=== PATIENT | male | born 1955 | race Caucasian/White ===

== ENCOUNTER 2018-12-07 16:50 | Inpatient (IN) | payer MEDICARE ==
[~2018-12-07] VITALS: Ht 175.3 cm; Wt 91.4 kg
--- NOTE | ~2018-12-07 | HEMODYNAMI ---
PATIENT:FERNANDO CATES MEDICAL RECORD: [id number] : 59 [facility] ADMISSION DATE: 12/08/18 Generatedon:12/09/201814:07 Patient name: FERNANDO CATES Patient #: [id number] SSN: [id number] : 1955 Date of study: 12/09/2018 Page: Of Hemodynamic Procedure Report Patient Data Patient Demographics Procedure consent was obtained First Name: FERNANDO Gender: Male Last Name: DARRYN : 1955 [facility] Initial: D Age: 63 year(s) Patient #: [id number] Race: SSN: [id number] Additional ID: [id number] Contact details [address]: [address] [place] [address] State: [place] City: [place] Zip code: [address] Past Medical History Allergies: No known allergies Admission Admission Data Admission Date: 12/08/2018 Admission Time: 18:09 Arrival Date: 12/09/2018 Arrival Time: 0:00 Admit Source: Emergency Insurance Payor: Medicare department [facility] #: [id number] Room #: D.2115 Height (in.): 68.9 BSA: 2.07 (m2) Height (cm.): 175 BMI: 29.71 (kg/m2) Weight (lbs.): 200.62 Weight (kg.): 91 Lab Results Lab Result Date: 12/09/2018 Lab Result Time: 0:00 Biochemistry Name Units Result Min Max BUN mg/dl 14 --(--*-)-- 7 18 Creatinine mg/dl 0.8 --(-*--)-- 0.6 1.3 eGFR ml/min 90 --(*---)-- 90 120 NONAFRICAN CBC Name Units Result Min Max Hemoglobin g/dl 12.5 *-(----)-- 13.5 17.5 Procedure Procedure Types Cath Procedure Diagnostic Procedure LHC LHC w/Coronaries Procedure Description Procedure Date Procedure Date: 12/09/2018 Procedure Start Time: 13:57 Procedure End Time: 14:05 Procedure Staff Name Function Richard Mcrae MD Performing Physician Lydia Albert RT Monitor Sarah oMya RT Monitor Aan Russell RT Scrub Irma Lemus RN Nurse Procedure Data Cath Procedure Fluoroscopy Diagnostic fluoroscopy Total fluoroscopy Time: 1 time: 1 min min Diagnostic fluoroscopy Total fluoroscopy dose: 241 dose: 241 mGy mGy Contrast Material Contrast Material Type Amount (ml) Isovue 300 48 Entry Location Entry Primary Successful Side Size Upsize Upsize Entry Closure Succes sful Closure Location (Fr) 1 (Fr) 2 (Fr) Remarks Device Remarks Femoral Right 5 Fr Exoseal artery Estimated blood loss: 5 ml Diagnostic catheters Device Type Used For End Catheter Placement MULTIPACK Pigtail 5 Fr LV Angiography catheter MULTIPACK JL 4.0 5Fr Left Coronary catheter Angiography MULTIPACK 3DRC 5Fr Right Coronary catheter Angiography Procedure Complications No complications Procedure Medications Medication Administration Route Dosage Versed I.V. 2 mg Fentanyl I.V. 50 mcg 0.9% NaCl I.V. 100 ml/hr Oxygen etCO2 Nasal cannula 2 l/min Lidocaine 2% added to field 20 Heparin Flush Bag added to field 2 bags (1000units/500ml NS) Versed I.V. 2 mg Fentanyl I.V. 50 mcg Versed I.V. 1 mg Fentanyl I.V. 50 mcg Hemodynamics Rest BSA: 2.07 (m2) HGB: 12.5 (g/dl) O2 Consumption: Estimated: 243.18 (ml/min) O2 Co nsumption indexed: Estimated:117.48 (ml/min/m) Heart Rate: 70 (bpm) Snapshots Pre Cath Intra NCS Post Cath Vital Signs Time Heart Resp SPO2 etCO2 NIBP (mmHg) Rhythm Pain Sedation Rate (ipm) (%) (mmHg) Status Level (bpm) 13:08:06 70 10 97 0 133/83(103) NSR 0 (11) 10(A) , No pain 13:12:20 65 11 100 36 131/79(101) NSR 0 (11) 10(A) , No pain 13:16:36 76 15 100 39 112/67(84) NSR 0 (11) 10(A) , No pain 13:20:46 68 13 100 41.3 115/74(86) NSR 0 (11) 10(A) , No pain 13:24:54 73 15 99 21 115/77(90) NSR 0 (11) 10(A) , No pain 13:29:08 69 13 99 34.5 116/68(87) NSR 0 (11) 10(A) , No pain 13:33:17 68 13 99 37.5 114/72(88) NSR 0 (11) 10(A) , No pain 13:37:27 69 14 98 11.2 124/75(99) NSR 0 (11) 10(A) , No pain 13:41:41 66 13 99 32.2 124/73(92) NSR 0 (11) 10(A) , No pain 13:45:51 66 15 98 30 115/75(88) NSR 0 (11) 10(A) , No pain 13:50:03 65 18 98 28.5 116/72(90) NSR 0 (11) 10(A) , No pain 13:54:15 76 13 98 19 103/73(85) NSR 0 (11) 10(A) , No pain 13:58:23 63 13 98 32.2 112/70(90) NSR 0 (11) 10(A) , No pain 14:02:35 71 13 97 32.2 112/66(93) NSR 0 (11) 10(A) , No pain Medications Time Medication Route Dose Verified Delivered Reason Notes Eff ectiveness by by 13:51:07 Versed I.V. 2 mg Richard Irma for Clementina Lemus sedation RN 13:51:16 Fentanyl I.V. 50 Richard Irma for mcg Clementina Lemus sedation RN 13:51:33 0.9% NaCl I.V. 100 Richard Irma used for ml/hr Clementina Lemus sales consulting director 13:51:40 Oxygen etCO2 2 Richard Irma used for Nasal l/min Clementina Lemus procedure cannula RN 13:51:45 Lidocaine 2% added 20ml Richard Ramos for local to vial Clementina Mcrae MD anesthetic field 13:51:49 Heparin Flush added 2 Richard Richard used for Bag to bags Clementina Mcrae MD procedure (1000units/500ml field NS) 13:56:36 Versed I.V. 2 mg Richard Mcrae MD sedation 13:56:42 Fentanyl I.V. 50 Richard Mcrae MD sedation 14:01:18 Versed I.V. 1 mg Richard Mcrae MD sedation 14:01:23 Fentanyl I.V. 50 Richard Ramos for navid Mcrae MD sedation Procedure Log Time Note 12:47:34 Procedure Status Urgent Heart Cath (IP). 12:47:36 Lydia Bety RT(R) sent for patient. Start room use. 12:47:38 Time tracking: Regular hours (M-F 7:00 - 5:00) 12:47:41 Plan of Care:Hemodynamics will remain stable., Cardiac rhythm will remain stable., Comfort level will be maintained., Respiratory function will remain adequate., Patient/ family verbilizes understanding of procedure., Procedure tolerated without complication., Recovers from procedure without complications.. 12:47:44 Signed procedure consent form obtained from patient. 12:57:13 Arrival Date: 12/09/2018 12:00:00 AM 12:57:14 Admit Source: Emergency department 12:57:37 Insurance Payor : Medicare 12:57:42 Patient Height : 68.9 inches 12:57:48 Patient Weight : 200.62 lbs 12:58:26 Lab Result : eGFR NONAFRICAN 90 ml/min 12:58:26 Lab Result : Hemoglobin 12.5 g/dl 12:58:26 Lab Result : BUN 14 mg/dl 12:58:26 Lab Result : Creatinine 0.8 mg/dl 13:02:13 Patient received from Med II to CCL 1 Alert and oriented. Tansferred to table in Supine position. 13:02:15 Warm blankets applied, and kaycee hugger turned on for patient comfort. 13:02:16 Correct patient and procedure confirmed by team. 13:02:17 ECG and BP/O2 sat monitors applied to patient. 13:06:39 H&P Date Dictated: 12/09/2018 Within 30 days and on chart.. 13:07:00 Vital chart was started 13:07:03 Baseline sample Acquired. 13:07:09 Rhythm: sinus rhythm 13:07:14 Full Disclosure recording started 13:07:15 - 13:07:17 Pre-procedure instructions explained to patient. 13:07:21 Pre-op teaching completed and patient verbalized understanding. 13:07:26 Family in patients room. 13:07:35 Patient allergic to No known allergies 13:07:41 Is the patient allergic to Iodine/contrast media? No. 13:07:44 Was the patient premedicated? No 13:07:46 Is patient on blood thinner?No 13:07:52 Patient diabetic? No. 13:08:27 ----Pre-sedation anethsthesia assessment.---- 13:08:32 Previous problem with sedation/anesthesia? No ? 13:08:34 Snore? Yes 13:08:36 Sleep apnea? No 13:08:38 Deviated septum? No 13:08:40 Opens mouth fully? Yes 13:08:41 Sticks out tongue? Yes 13:08:48 Airway obstruction? Yes COPD 13:09:01 Dentures? No ? 13:09:05 Pre procedure: right dorsailis pedis pulse 2+ Normal; easily identifiable; not easily obliterated 13:09:09 Pre procedure: left dorsailis pedis pulse 2+ Normal; easily identifiable; not easily obliterated 13:09:21 Patient pain scale 0/10 ?. 13:09:29 IV patent on arrival in left forearm with 0.9% NaCl at [facility]. 13:09:36 Lab results completed and on chart. 13:09:41 Risk of Mortality: 0.1 13:09:46 Risk of blood transfusion: 1.0 13:09:51 Risk of CHARISSA: 2.4 13:09:59 Right groin area was prepped with chlora-prep and draped in sterile fashion 13:10:03 Alarms reviewed by R. N. 13:10:05 Sharps counted by scrub and verified by R.N. 13:13:34 Use device set Femoral Dx 13:13:38 ACIST Syringe (25912) opened to sterile field. 13:13:38 Bag Decanter (2002S) opened to sterile field. 13:13:40 Medline Cath Pack ([id number]) opened to sterile field. 13:13:43 ACIST Hand Control (17306) opened to sterile field. 13:13:44 ACIST Manifold (22680) opened to sterile field. 13:13:46 DIAGNOSTIC Multipack 5Fr catheter set (XX9595) opened to sterile field. 13:13:47 Tegaderm 4 x 4 (1626W) opened to sterile field. 13:13:54 SHEATH 5FR Greenwich (ZTD850) opened to sterile field. 13:13:56 EMERALD Guide Wire (618-820) opened to sterile field. 13:15:56 ACCPatient has been prescribed/administered the following anti-anginal medication within the last 2 weeks: None 13:20:44 Zero performed for pressure channel P1 13:43:22 1) 90+ Normal kidney functon but urine findings or structural abnormalities or genetic trait point to kidney disease. 13:43:31 Maximum allowable contrast dose (3.7 X eGFR X 0.75)250 ml. 13:47:27 ACC Patient presents with Unstable Angina CCS Anginal Class 3--Marked limitation of physical activity, angina occurs with ordinary activity.. 13:49:09 --------ALL STOP TIME OUT------ 13:49:10 Final Timeout: patient, procedure, and site verified with staff and physician. All members of the team are in agreement. 13:49:12 Right groin site verified by team. 13:49:19 Fire Safety Assessment: A--An alcohol-based skin anteseptic being used preoperatively., C--Open oxygen or nitrous oxide is being used., D--An ESU, laser, or fiber-optic light is being used. 13:49:24 Physical assessment completed. ASA score P 2 - A patient with mild systemic disease as per Richard Mcrae MD. 13:49:29 Sedation plan: IV Moderate Sedation Medication:Versed, Fentanyl 13:51:07 Versed 2 mg I.V. was administered by Irma Lemus RN; for sedation; Verbal order read back and verified. 13:51:16 Fentanyl 50 mcg I.V. was administered by Irma Lemus RN; for sedation ; Verbal order read back and verified. 13:51:33 0.9% NaCl 100 ml/hr I.V. was administered by Irma Lemus RN; used for procedure; Verbal order read back and verified. 13:51:40 Oxygen 2 l/min etCO2 Nasal cannula was administered by Irma Lemus RN ; used for procedure; Verbal order read back and verified. 13:51:45 Lidocaine 2% 20ml vial added to field was administered by Richard Mcrae MD; for local anesthetic; Verbal order read back and verified. 13:51:49 Heparin Flush Bag (1000units/500ml NS) 2 bags added to field was administered by Richard Mcrae MD; used for procedure; Verbal order read back and verified. 13:56:36 Versed 2 mg I.V. was administered by Richard Mcrae MD; for sedation; Verbal order read back and verified. 13:56:42 Fentanyl 50 mcg I.V. was administered by Richard Mcrae MD; for sedation ; Verbal order read back and verified. 13:57:00 Procedure started. 13:57:06 Local anesthetic to right femoral artery with Lidocaine 2% by Richard Mcrae MD.INITIAL ACCESS ONLY 13:58:51 A 5 Fr sheath was inserted into the Right Femoral artery 13:59:28 A MULTIPACK Pigtail 5 Fr catheter was advanced over the wire and used for LV Angiography. 13:59:31 LV gram done using PANDEY 13:59:38 Injector settings: Ml/sec: 10, Volume: 20, 13:59:47 EF : 55 % 13:59:50 Catheter removed. 13:59:58 A MULTIPACK JL 4.0 5Fr catheter was advanced over the wire and used for Left Coronary Angiography. 14:00:02 LCA angiography performed. 14:00:44 Injector settings: Ml/sec: 3, Volume: 6, 14:01:07 Catheter removed. 14:01:14 A MULTIPACK 3DRC 5Fr catheter was advanced over the wire and used for Right Coronary Angiography. 14:01:18 Versed 1 mg I.V. was administered by Richard Mcrae MD; for sedation; Verbal order read back and verified. 14:01:23 Fentanyl 50 mcg I.V. was administered by Richard Mcrae MD; for sedation ; Verbal order read back and verified. 14:01:36 RCA angiography performed. 14:01:45 Injector settings: Ml/sec: 3, Volume: 6, 14:01:55 EXOSEAL 5Fr (EX500) opened to sterile field. 14:02:04 Catheter removed. 14:02:24 Sheath removed intact; hemostasis achieved with Exoseal to the Right Femoral artery. 14:02:31 Procedure ended.(Physican Out) 14:02:45 Fluoroscopy time 01.00 minutes. 14:02:55 Fluoroscopy dose: 241 mGy 14:02:55 Flurop Dose total: 241 14:03:09 Dose Area Product 69861 mGy/cm. 14:03:15 Contrast amount:Isovue 300 48ml. 14:03:19 Maximum allowable dose exceeded? No. 14:03:21 Sharps counted by scrub and verified by R.N. 14:03:29 Insertion/operative site no bleeding no hematoma. 14:03:34 Post-op/insertion site Right Femoral artery dressed using a 4 x 4 and Tegaderm. 14:03:40 Post right femoral artery:stable 14:03:43 Post Procedure Pulses reassessed and unchanged 14:03:49 Post-procedure physical assessment completed. ASA score P 2 - A patient with mild systemic disease as per Richard Mcrae MD. 14:03:53 Post procedure rhythm: unchanged. 14:03:58 Estimated blood loss: 5 ml 14:04:00 Post procedure instruction explained to patient.Patient verbalizes understanding. 14:04:01 Patient needs reinforcement of post procedure teaching. 14:04:16 Procedure and supply charges have been captured, reviewed, submitted an d are correct. 14:05:03 Procedure Complication : No complications 14:05:07 Vital chart was stopped 14:05:11 [facility] Findings: mild to moderate CAD (<70%) 14:05:16 Operative report dictated upon procedure completion. 14:05:17 See physician's report for complete and final results. 14:05:20 Report given to Med II. 14:05:25 Patient transfered to Med II with Bed. 14:05:28 Procedure ended. 14:05:28 Full Disclosure recording stopped 14:05:37 End room use (Document Last) Device Usage Item Name Manufacture Quantity Catalog Hospital Part Current Minimal L ot# / Number Charge Number Stock Stock Serial# Code ACIST Acist 1 35776 078198 787955 278338 20 [employer] (46434) Systems Inc Bag Microtek 1 2001S 254306 15458 722228 5 Decanter Medical Inc. (2001S) Medline Medline 1 [id number] 033670 42116 521015 5 Cath Pack ([id number]) ACIST Hand Acist 1 94146 909805 687934 424921 5 Control Medical (12790) Systems Inc ACIST Acist 1 37558 571835 421874 963672 5 Manifold Medical (78695) Systems Inc DIAGNOSTIC Cardinal 1 [id number] 457910 69304 511987 30 Multipack WhipCar 5Fr catheter set (IL2262) Tegaderm 4 3M 1 1626W 312216 461968 230723 5 x 4 (1626W) SHEATH 5FR Terumo 1 BUE560 715704 713422 341383 5 Greenwich (KMM100) EMERALD Cardinal 1 502455 362389 152416 833853 5 Guide Wire [facility] (502-050) MULTIPACK Cardinal 1 808870 5 Pigtail 5 Health Fr catheter MULTIPACK Cardinal 1 518020 5 JL 4.0 5Fr Health catheter MULTIPACK Cardinal 1 953903 5 3DRC 5Fr Health catheter EXOSEAL 5Fr Cardinal 1 EX500 817550 195749 468825 10 (EX500) Health Signature Audit [place] Stage Time Signature Unsigned Intra-Procedure 12/09/2018 Sarah 2:06:05 PM Nita RT(R) (CV) Intra-Procedure 12/09/2018 Irma Lemus 2:06:33 PM RN Intra-Procedure 12/09/2018 Richard Mcrae 2:07:16 PM [place] [id number] [place] [address]
[2018-12-07] MEDS ORDERED: ASPIRIN81 MG PO (17:05)
[2018-12-07] MEDS ORDERED: NITROQUICK0.4 MG SL (17:05)
[2018-12-07 17:18] LABS: BASOPHILS 0.6 % (0-2); EOSINOPHILS 4.2 % (0-7); HEMATOCRIT 37.2 % (42.0-54.0); HEMOGLOBIN 12.9 g/dL (13.5-17.5); IMMATURE GRANULOCYTES 0.3 % (0-5); LYMPHOCYTES 34.8 % (15-50); MCH 32.5 pg (26.0-34.0); MCHC 34.7 g/dL (31.0-37.0); MCV 93.7 fL (80.0-100.0); MONOCYTES 9.4 % (2-11); NEUTROPHILS 50.7 % (40-80); PLATELET COUNT 291 10x3/uL (130-400); RBC 3.97 10x6/uL (4.20-6.10); WBC 6.4 10x3/uL (4.8-10.8)
[2018-12-07 17:28] LABS: APTT 24.4 SECONDS (22.8-39.4); INR 0.94 (0.85-1.17); PROTIME 12.1 SECONDS (11.6-15.0)
[2018-12-07 17:41] LABS: ALBUMIN 3.7 g/dL (3.4-5.0); ALKALINE PHOSPHATASE 77 U/L (46-116); ALT (SGPT) 35 U/L (10-68); BILIRUBIN - TOTAL 0.28 mg/dL (0.2-1.3); CALC OSMOLALITY 281 mosm/kg (275-300); CALCIUM 9.3 mg/dL (8.5-10.1); CARBON DIOXIDE 28.4 mmol/L (21.0-32.0); CHLORIDE - SERUM 104 mmol/L (98-107); CREATININE - SERUM 0.7 mg/dL (0.6-1.3); GLUCOSE 91 mg/dL (74-106); POTASSIUM - SERUM 4.2 mmol/L (3.5-5.1); PROTEIN - SERUM 6.7 g/dL (6.4-8.2); SODIUM 141 mmol/L (136-145); UREA NITROGEN 14 mg/dL (7-18); eGFR NON AFRICAN AMERICAN > 90 mL/min (90-120)
[2018-12-07 17:45] VITALS: BP 126/80
[2018-12-07 17:57] LABS: CKMB 0.8 U/L (0.0-3.6); CREATINE KINASE 85 UL (21-232); MAGNESIUM - SERUM 1.8 mg/dL (1.8-2.4); TROPONIN-I < 0.017 ng/mL (0.000-0.060)
[2018-12-07 18:42] VITALS: BP 133/85
--- NOTE | 2018-12-07 18:56 | NUR ---
BS REPORT TO KAREN GARNICA
--- NOTE | 2018-12-07 19:40 | NUR ---
PT IN BED TALKING WITH FAMILY AT BEDSIDE, PT HAS NO NEEDS AT THIS TIME.
[2018-12-07 21:59] VITALS: BP 142/72; BMI 29.7
[2018-12-08] VITALS: BP 113/67
[2018-12-08 00:03] LABS: CKMB 0.7 U/L (0.0-3.6); CREATINE KINASE 107 UL (21-232); TROPONIN-I < 0.017 ng/mL (0.000-0.060)
[2018-12-08 04:00] VITALS: BP 114/65
[2018-12-08 06:08] LABS: BASOPHILS 0.5 % (0-2); EOSINOPHILS 5.5 % (0-7); HEMATOCRIT 35.9 % (42.0-54.0); HEMOGLOBIN 12.5 g/dL (13.5-17.5); IMMATURE GRANULOCYTES 0.2 % (0-5); LYMPHOCYTES 36.3 % (15-50); MCH 33.2 pg (26.0-34.0); MCHC 34.8 g/dL (31.0-37.0); MCV 95.5 fL (80.0-100.0); MEAN PLATELET VOLUME 9.2 fL (7.4-10.4); MONOCYTES 9.4 % (2-11); NEUTROPHILS 48.1 % (40-80); PLATELET COUNT 274 10x3/uL (130-400); RBC 3.76 10x6/uL (4.20-6.10); RDW 12.4 % (11.5-14.5)
[2018-12-08 06:38] LABS: ALBUMIN 3.3 g/dL (3.4-5.0); ALKALINE PHOSPHATASE 55 U/L (46-116); ALT (SGPT) 33 U/L (10-68); BILIRUBIN - TOTAL 0.43 mg/dL (0.2-1.3); CALC OSMOLALITY 278 mosm/kg (275-300); CALCIUM 8.5 mg/dL (8.5-10.1); CARBON DIOXIDE 30.2 mmol/L (21.0-32.0); CHLORIDE - SERUM 104 mmol/L (98-107); CKMB 0.7 U/L (0.0-3.6); CREATINE KINASE 60 UL (21-232); CREATININE - SERUM 0.8 mg/dL (0.6-1.3); GLUCOSE 88 mg/dL (74-106); POTASSIUM - SERUM 3.8 mmol/L (3.5-5.1); PROTEIN - SERUM 6.3 g/dL (6.4-8.2); SODIUM 140 mmol/L (136-145); TROPONIN-I < 0.017 ng/mL (0.000-0.060); UREA NITROGEN 14 mg/dL (7-18); eGFR NON AFRICAN AMERICAN > 90 mL/min (90-120)
[2018-12-08 09:05] VITALS: Ht 175.3 cm; Wt 91.4 kg
[2018-12-08 09:06] VITALS: BP 107/62
--- NOTE | 2018-12-08 11:03 | NUR ---
TELEMETRY SR. LEAVING FOR STRESS TEST BY W/C.
--- NOTE | 2018-12-08 13:34 | NUR ---
GONE FOR SECOND HALF STRESS TEST. WILL MONITOR.
[2018-12-08 16:29] VITALS: BP 133/68
--- NOTE | 2018-12-08 17:43 | NUR ---
CONSENTS SIGNED FOR [facility]. MEDICATED FOR C/P. WILL CONT. PLAN OF CARE.
[2018-12-08 20:00] VITALS: BP 134/70
[2018-12-09] VITALS: BP 116/69
[2018-12-09 04:00] VITALS: BP 101/67
[2018-12-09 08:30] VITALS: BP 119/71
[2018-12-09 12:30] VITALS: BP 122/75
--- NOTE | 2018-12-09 12:58 | NUR ---
HR DROPPED TO 30, THEN BACK UP TO 60. SEWER LINE PHOTO INSPECTOR NOTIFIED TO INFORM DR. MCGRATH. LEAVING FOR SEWER LINE PHOTO INSPECTOR BY BED. WILL MONITOR.
--- NOTE | 2018-12-09 14:04 | HP ---
PATIENT: FERNANDO CATES MEDICAL RECORD: [id number] ACCOUNT: [id number] LOCATION:[address] : [birth year] ADMISSION DATE: 12/08/18 PCP: No PCP HISTORY AND PHYSICAL EXAMINATION DIAGNOSES: 1. Unstable angina. 2. Coronary artery disease. 3. Previous myocardial infarction. 4. Previous percutaneous transluminal coronary angioplasty stent. 5. Chronic obstructive pulmonary disease. 6. Smoking history. HISTORY OF PRESENT ILLNESS: Mr. Cates presents with increasing episodes of chest pain times 2 days. He has been short of breath for 1 week. His chest pain is a classic anginal pain with a tightness, heavy pressure sensation on the anterior chest. No real radiation. He was initially getting it with exertion yesterday; however, it progressed to rest pain. Last night, he presented to the Emergency Room. His EKG is with no changes. Troponin is negative. He is pain free at this time. It is like that of his previous angina. Last cardiac intervention was approximately 1999 as he remembers. He has been told in the past that he has a weak heart as well. PHYSICAL EXAMINATION: CONSTITUTIONAL/GENERAL APPEARANCE: Well nourished, well developed, appears stated age. EYES: Lids and conjunctivae noninjected. No discharge. No pallor. ENT: Lips within normal limit. No cyanosis. No pallor. NECK: Carotid arteries, bilateral normal upstroke. No bruits. No thrills. No jugular venous pressure or distention. CERVICAL LYMPH NODES: Nontender. Nonenlarged. THYROID: Not enlarged. No nodules. CARDIOVASCULAR: Precordial exam, nondisplaced. No heaves or pericardial thrills. Rate and rhythm, regular. Heart sounds, normal S1, normal S2. No S3, no gallop, no rub. Systolic murmur, not heard. Diastolic murmur, not heard. RESPIRATORY: Respiratory effort, unlabored. Normal curvature. No thoracic deformity. No chest wall tenderness. Percussion, resonant. Auscultation, clear. No wheezes, no rales, no rhonchi. ABDOMEN: Soft, nondistended, nontender. No abdominal pain, no vomiting and normal appetite. MUSCULOSKELETAL: No joint tenderness, normal gait, normal tone. SKIN: Warm and dry. OVERALL IMPRESSION: Unstable angina, normal EKG, normal troponin. At this time, we will risk stratify with stress testing and Cardiolite imaging. We will also obtain an echo for evaluation of the cardiomyopathy. TRANSINT:[id number] Voice Confirmation ID: [id number] DOCUMENT ID: [id number] HISTORY AND PHYSICAL [id number] FERNANDO CATES JEFFREY MD at 1404 CC: [id number] DICTATION DATE: 12/08/18906 UNIVERSITY TUTOR: 12/08/18 0944 ADM IN [place] [id number] [place] [id number]
--- NOTE | 2018-12-09 14:26 | NUR ---
BACK FROM C ARCHITECT. VS WNL. RIGHT GROIN STABLE WITHOUT BLEEDING OR HEMATOMA NOTED. WILL MONOOR.
--- NOTE | 2018-12-09 15:57 | NUR ---
BED REST UP. GROIN STABLE.
--- NOTE | 2018-12-09 16:14 | NUR ---
NO FURTHER EPISODES OF SB. GROIN STABLE. IV AND TELEMETRY DCD. DC PLANS GIVEN. UNDERSTANDING VOICED. UPSET WITH DR. MCGRATH FOR NOT EXPLAINING THINGS BETTER. RAMILA NOTIFIED EARLIER IN SENIOR CAREGIVER. STATES C/P IS NOT CARDIAC AND NO BLOCKAGES. TRIED TO EXPLAIN THIS TO PT AND FAMILY, BUT STILL ANGRY WITH PHYSICIAN AT THIS TIME. LEAVING HOSP WITH FAMILY.
--- NOTE | 2018-12-09 17:50 | MORECARE ---
CASE MANAGEMENT DISCHARGE SUMMARY PATIENT: FERNANDO CATES UNIT: [id number] ADM DATE: 12/08/18 AGE: 63 : [birth year] SEX: M ROOM/BED: D.5795 AUTHOR: OUMOU JON PHYSICIAN: REFERRING PHYSICIAN: DEEPAK MCGRATH MD DATE OF SERVICE: 12/09/18 Discharge Plan Patient Name: FERNANDO CATES Facility: [facility]:[place] : 1955 Planned Disposition: Home Anticipated Discharge Date: 12/09/18 Discharge Date: 12/09/2018 Expected LOS: 1 Initial Reviewer: [email or web address] Initial Review Date: 12/09/2018 Generated: 12/09/18 6:50 pm Comments DCP- Discharge Planning Updated by [email or web address]: Suman Graham on 12/09/18 4:[address] Patient Name: FERNANDO CATES Admission Status: ER Accout number: [id number] Admission Date: 12-08-2018 : 1955 Admission Diagnosis: Attending: SADI MCGRATH Current LOS: 1 Anticipated DC Date: 12-09-2018 Planned Disposition: Home Primary Insurance: MEDICARE A & B Discharge Planning Comments: CM ATTEMPTED TO MEET WITH PT FOR INITIAL ASSESSMENT OF DISCHARGE NEEDS. PT WAS NOT IN ROOM AT APPROXIMATELY 1620 HOURS. PT HAD DISCHARGED HOME PRIOR TO CM BEING ABLE TO ASSESS FOR DISCHARGE NEEDS. Secretary Of State: Suman Graham Coverage Notice Reviewer: [email or web address] Antonia Espinosa Notice Issued Date-Time: 12/07/2018 18:45 Notice Type: Medicare Outpatient Observation Notice Notice Delivered To: Patient Relationship to Patient: Self Quantitative Research Analyst Name: Delivery Method: - Praveena Days: Prior Verbal Notification: Recipient Understood Notice: Yes Recipient Signature: Yes Med Rec Note Co-signed by Attending: Coverage Notice Comment: VILLA given to and signed by patient. Patient Name: FERNANDO CATES Page [id number] at 1750 All edits/amendments must be made on the electronic document DICTATION DATE: 12/09/181749 HAM SMOKER: SILVIA 12/09/18 175 RPT#: [id number] DC DATE:12/09/18 STATUS: DIS IN [facility] [address] [place] [address] END OF REPORT
--- NOTE | 2018-12-10 13:29 | ST ---
PATIENT:FERNANDO CATES MEDICAL RECORD: [id number] SEX: M [facility] ORDER #: ADMISSION DATE: 12/08/18 AGE OF PATIENT: 63 REFERRING PHYSICIAN: INTERPRETING PHYSICIAN: DEEPAK MCGRATH MD DATE OF SERVICE: 12/08/2018 PROCEDURE: Nuclear stress test. INDICATION: Unstable angina, coronary artery disease. He was exercised on standard Lexiscan protocol with 31 mCi of sestamibi injected at peak stress, 11 mCi used previously for rest images. FINDINGS: Gated SPECT reveals preserved ejection fraction at 65% with good wall motioning and thickening and brightening throughout all segments. SPECT imaging Cardiolite was used as myocardial perfusion agent. There are reversible changes inferiorly. This includes the basal, mid, apical, inferior segments. The degree of reversibility is mild to moderate. The amount of myocardium involved is moderate. OVERALL IMPRESSION: This is an abnormal nuclear stress test. Reversible ischemia inferiorly suggestive of hemodynamically significant coronary artery disease. TRANSINT:[id number] Voice Confirmation ID: [id number] DOCUMENT ID: [id number] DEEPAK MCGRATH MD at 1329 CC: [id number] DICTATION DATE: 12/08/18 1609 CAREER DEVELOPMENT COUNSELOR: 12/09/18 0811 DIS IN 12/09/18 [place] [address] [place] [address]
--- NOTE | 2018-12-10 13:29 | OP ---
PATIENT NAME: FERNANDO CATES MEDICAL RECORD: [id number] :59 LOCATION:D.M2 D.2115 ADMISSION DATE:12/08/18 SURGEON: DEEPAK MCGRATH MD DATE OF OPERATION: 12/09/2018 DATE OF SERVICE: 12/09/2018 PROCEDURES: 1. Left heart catheterization. 2. Selective coronary angiography. 3. Left ventriculogram. INDICATION: Chest pain compatible with angina and abnormal nuclear stress test. PROCEDURE IN DETAIL: After informed consent was obtained and after a detailed description of the risks, benefits as well as alternative therapies, the patient elected to proceed with angiogram and heart catheterization. The right femoral area was prepped and draped in normal sterile fashion. The right femoral artery was cannulated via modified Seldinger technique with placement of 5-Sinhala sheath. All catheters exchanged through this sheath. FINDINGS: Left ventriculogram was performed in standard 30-degree PANDEY view, reveals good cardiac wall motion, ejection fraction estimated 60%. SELECTIVE CORONARY ANGIOGRAPHY: Left main, left anterior descending, left circumflex, right coronary artery are all smooth-walled vessels with no angiographic evidence of coronary artery disease. OVERALL IMPRESSION: 1. No angiographic evidence of coronary artery disease. 2. Normal left heart pressures. 3. Normal left ventricular systolic function. Chest pain is noncardiac in etiology. No further cardiac workup needs to be ascertained. TRANSINT:[id number] Voice Confirmation ID: [id number] DOCUMENT ID: [id number] DEEPAK MCGRATH MD at 1329 CC: [id number] DICTATION DATE: 12/09/18 1406 CUSTOMER SERVICE CONSULTANT: 12/09/18 1415 DIS IN 12/09/18 [place] [id number] [place] [address]
--- NOTE | 2018-12-10 13:29 | DS ---
PATIENT:FERNANDO CATES :59 MEDICAL RECORD: [id number] DISCHARGE SUMMARY ADMISSION DATE: 12/08/18 DISCHARGE DATE: 12/09/18 DATE OF DISCHARGE: 12/09/2018 DIAGNOSES: 1. Chest pain. 2. Normal cardiac catheterization. HOSPITAL COURSE: Mr. Cates presented with chest pain. He gave a history of having multiple stents in the past; however, cardiac catheterization revealed no blockages of his heart arteries. No previously placed stents. Not sure of the etiology of his chest discomfort. No other cardiac workup or treatment is necessary. TRANSINT:[id number] Voice Confirmation ID: [id number] DOCUMENT ID: [id number] DEEPAK MCGRATH MD at 1329 CC: [id number] DICTATION DATE: 12/09/18 1407 [employer]IC SYSTEMS SAFETY ENGINEER: 12/10/18 0406 DIS IN 12/09/18 [id number] [place] [address]
--- NOTE | 2018-12-10 13:29 | EC ---
PATIENT:FERNANDO CATES DATE OF SERVICE: 12/08/18 SEX: M MEDICAL RECORD: [id number] DATE OF : 59 LOCATION:D. D211 AGE OF PATIENT: 63 ADMISSION DATE: 12/08/18 REFERRING PHYSICIAN: INTERPRETING PHYSICIAN: DEEPAK MCRAE MD ECHOCARDIOGRAM REPORT ECHO CHARGES 4 ECHO COMPLETE Date: 12/08/18 CLINICAL DIAGNOSIS: DILATED CARDIOMYOPATHY HX CAD/STENT ECHOCARDIOGRAPHIC MEASUREMENTS (adult normal given) AC root (d.<3.7cm) 3.5 cm LV Septum d (<1.2 cm> 1.3 cm Valve Excursion 1.7 cm LV Septum (systole) 1.5 cm Left Atria (s.<4.0cm> 3.4 cm LVPW d(<1.2cm) 1.4 cm RV (d.<2.3cm) 4.1 cm LVPW (sytole) 1.6 cm LV diastole(<5.6CM) 4.8 cm MV E-F(>70mm/sec) cm LV systole 3.5 cm LVOT Diameter 2.1 cm MV exc.(>10mm) 1.8 cm Est.ejection fraction (50-75%) % DOPPLER: LVIT cm/sec A 76.0 cm/sec E 86.0 cm/sec LA cm/sec RVSP 20 mmHg LVOT 101 cm/sec AOP1/2T m/s Asc. Ao 122 cm/sec RVOT 81 cm/sec RA cm/sec PA 152 cm/sec AV Gradient Peak 5.99 mmHg AV Mean 3.55 mmHg AV Area 2.6 cm MV Gradient Peak 4.23 mmHg MV Mean 2.11 mmHg MV Area cm COMMENTS: Metal Or Wood Blocker: Cara FRIEDMAN Exec. Creative Director: 1 Dr. Mcrae TAPE# PACS Pericardial Effusion N DATE OF SERVICE: 12/08/2018 FINDINGS: 1. Left ventricular chamber size is within normal limits. Left ventricular systolic function equals 55% to 60%. 2. Left atrium is within normal limits at 3.4 cm. Right atrium and right ventricular chamber sizes are mildly dilated. 3. Valvular structures have normal structure and motion. 4. Doppler interrogation only reveals trace tricuspid regurgitation. No other valvular insufficiency or stenosis. Pulmonary systolic pressure is estimated at ECHOCARDIOGRAM REPORT [id number] FERNANDO CATES 20 mmHg. 5. No evidence of pericardial effusion or left ventricular thrombus. TRANSINT:[id number] Voice Confirmation ID: [id number] DOCUMENT ID: [id number] DEEPAK MCRAE MD at 1329 CC: [id number] DICTATION DATE: 12/08/18 [address] RELATIONS ADVISER: 12/09/18 0220 DIS IN 12/09/18 [facility] [address] [id number]
== END 2018-12-09 16:18 | disposition home or self-care (01) | DRG 287 ==
LOC: D.ER 16:50 → D.M2 18:42 → OBSVTIME 18:54 → D.M2 12-08 18:09
PROVIDERS: Family Medicine; ADMIT Internal Medicine Interventional Cardiology; ATTEND Internal Medicine Interventional Cardiology
PROC: B2151ZZ Fluoroscopy of Left Heart using Low Osmolar Contrast (ICD-10-PCS; 2018-12-09)
PROC: 4A023N7 Measurement of Cardiac Sampling and Pressure, Left Heart, Percutaneous Approach (ICD-10-PCS; 2018-12-09)
PROC: B2111ZZ Fluoroscopy of Multiple Coronary Arteries using Low Osmolar Contrast (ICD-10-PCS; principal; 2018-12-09 12:00)
DX: R07.89 Other chest pain (principal); I25.10 Atherosclerotic heart disease of native coronary artery without angina pectoris; I25.2 Old myocardial infarction; J44.9 Chronic obstructive pulmonary disease, unspecified